=== PATIENT | male | born 1955 | race Caucasian/White ===

== ENCOUNTER → 2018-02-17 14:38 | Outpatient (CLI) | payer MEDICAID, SELFPAY ==
[2018-02-17 15:01] LABS: CREATININE FINGERSTICK 0.8 mg/dL (0.70-1.30); EGFR FINGERSTICK > 60.0000 mL/min (>60)
== END ==
PROVIDERS: Family Provider Family Medicine; PCP Family Medicine; Visit Provider Psychiatry & Neurology Neurology
DX: I67.1 Cerebral aneurysm, nonruptured (principal)
CPT/HCPCS: 70496; Q9967

== ENCOUNTER 2022-12-01 19:36 | Emergency (ER) | payer MEDICAID, SELFPAY ==
[2022-12-01 19:38] VITALS: BP 180/100; PULSE 82; RESP 18; TEMP 35.5; O2SAT 96; BMI 30.8
--- NOTE | 2022-12-01 19:57 | CT_ITS ---
STUDY: CTA CHEST REASON FOR EXAM: Male, 67 years old. CP, SOB RADIATION DOSAGE (If Supplied By Facility): CTDIvol = ( 24.11 ) mGy, DLP = ( 548.44 ) mGycm TECHNIQUE: The examination was performed with the intravenous administration of IV 100mL Isovue-370. Post-processing of the angiographic images was performed, with multiplanar reformation and 3D reconstruction. Individualized dose optimization techniques were used for this CT. COMPARISON: 12/23/2016 CT PET FINDINGS: Normal enhancement of the main pulmonary artery and right and left pulmonary arteries. Normal enhancement of the bilateral peripheral pulmonary arteries. There is no demonstrated pulmonary embolism. Normal thoracic aorta and visualized great vessels. There is no demonstrated aortic dissection. Normal heart and pericardium. There is questionable soft tissue density overlying the aortopulmonary window measuring 3.6 cm not seen on previous imaging. Normal hilar regions. Normal visualized trachea and bronchi. The lungs are well expanded. There is a possible nodule measuring 4 mm overlying the mid right lower lobe is somewhat limited by motion artifact. Normal pleura. Normal chest wall structures. Normal osseous structures. Normal visualized upper abdomen. CT/CTA Chest W/WO Contrast IMPRESSION: No evidence of pulmonary embolism or aortic dissection. No evidence of underlying focal consolidation. Questionable mediastinal soft tissue density measuring 3.6 cm (series 2 image 169/265). Consider follow-up PET/CT imaging to assess for underlying glucose activity. Right lower lobe possible 4 mm nodule, recommend follow-up imaging in 3-4 months given patient''s previous PET CT scans demonstrating previous neoplasm. Recommend continued. Imaging follow-up further assessment and exclude occult underlying findings. Electronically Signed: Elias Cheng DO at 21:21 EDT ,
--- NOTE | 2022-12-01 19:58 | EKG12_ITS ---
Test Reason : CP Blood Pressure : / mmHG Vent. Rate : 080 BPM Atrial Rate : 080 BPM P-R Int : 192 ms QRS Dur : 080 ms QT Int : 370 ms P-R-T Axes : -18 046 -15 degrees QTc Int : 426 ms Normal sinus rhythm Left ventricular hypertrophy with repolarization abnormality ( Sokolow-Rees ) Abnormal ECG Confirmed by MAGDY STEWARD, JOSE ([id number]), editor continuity and script BRYON MA ([id number]) on 12/03/2022 8:49:24 AM Referred By: CARLENE Confirmed By:JOSE CURRAN MD
--- NOTE | 2022-12-01 20:10 | EDS_ITS ---
HPI History of Present Illness Chief Complaint: Chest Pain [facility] Medical History (Updated 12/01/22 @ 23:[address] Leonardo Hartmann, DO) CVA (cerebral vascular accident) Home Medications prednisone 50 mg tablet 50 mg PO DAILY #5 tabs 12/01/22 [Rx Last Taken Unknown] Allergy/AdvReac Type Severity Reaction Status Date / Time celecoxib [From Celebrex] Allergy Anaphylaxis Verified 12/01/22 19:37 Surgical History (Updated 12/01/22 @ 19:41 by Lisa Penn) S/P lobectomy of lung Social History Smoking Status: Former smoker EXAM Physical Exam Const Vital Signs: 12/01/22 19:38 12/01/22 19:41 12/01/22 19:42 Temperature 96 F L Temperature Source Temporal Pulse Rate 82 Respiratory Rate 18 Respiratory Effort Short of Breath Short of Breath Respiratory Pattern Blood Pressure 180/100 H Blood Pressure Mean 126 Pulse Ox 96 Oxygen Delivery Method Nasal Cannula Oxygen Flow Rate (L/min) 3 12/01/22 21:37 Temperature Temperature Source Pulse Rate 77 Respiratory Rate 18 Respiratory Effort Respiratory Pattern Normal Blood Pressure Blood Pressure Mean Pulse Ox Oxygen Delivery Method Oxygen Flow Rate (L/min) MDM MDM MDM Narrative Medical decision making narrative: HISTORY OF PRESENT ILLNESS: 67-year-old male here for chest pain, shortness of breath. States he wears 3 L at baseline. States his history of lung cancer. He states pain started several days ago. Notes increased use of his nebulizer breathing treatment. Denies any cough fever or chills. Denies any sick contacts. Denies any syncope. Notes history of cancer but denies current treatment. The patient denies recent surgery in the last 4 weeks or immobilization in the last 3 days, denies previous diagnosis of DVT or PE, hemoptysis, unilateral leg swelling or malignancy with treatment the last 6 months. No estrogen use noted. He also notes chest pain. Pain is not radiating is not pleuritic. It is not associated with numbness weakness or loss sensation. Is not exertional. REVIEW OF SYSTEMS: Pertinent positives: Chest pain, shortness of breath Pertinent negatives: Syncope, hemoptysis PHYSICAL EXAM: Nursing triage notes reviewed, Vital signs reviewed Constitutional: please see mdm HENT: MMM Eyes: Pupils equal round and reactive to light, Extraocular muscles intact Neck: No stridor, no JVD, full neck ROM Lungs: Clear to auscultation, slight wheezing noted in the left lung mack slightly greater than right. No increased work of breathing, no conversational dyspnea, no accessory muscle use, no nasal flaring. No respiratory distress noted Heart: Regular rate and rhythm, No murmurs, No rubs and No gallops, 2+ distal pulses (radial, femoral, posterior tibial) in all extremities Abdomen: Soft, there is no tenderness, rigidity, rebound or guarding, no obvious peritoneal signs, no palpable pulsatile abdominal masses, no auscultated abdominal bruit : No CVAT Extremities: No edema Neuro: No focal neurological deficits, cranial nerves II through XII intact, 5/5 strength in all extremities. Intact sensation to light touch in all extremities, 2+ reflexes bilateral patella tendons. Normal gait. No ataxia. Skin: No rash or lesions noted MEDICAL DECISION MAKING: Chief Complaint: Chest pain, shortness of External records reviewed: No recent echocardiograms noted in the chart Factors affecting care: Lung cancer on 2 L baseline, CHF, epilepsy, TIA, oxygen dependence, hypertension Social determinants of health: Elderly History obtained from others: The patient's family Consults: None ALL IMAGES HAVE BEEN PERSONALLY REVIEWED AND INTERPRETED BY MYSELF. MDM Narrative: 67-year-old male here for chest pain, shortness of breath. The patient states I considered the following differential diagnosis: PE, anemia, ACS, arrhythmia, CHF, COPD exacerbation, pneumonia Patient was initially hypertensive otherwise hemodynamically stable on 3 L baseline home O2. He has slight wheezing on my exam. I obtained a CTA to rule out PE. CTA shows no evidence of pneumonia or pulmonary embolism also obtained EKG troponin and basic labs including BNP. Initial troponin was indeterminate we will repeat troponin. BNP not elevated. There is no right heart strain initial EKG. There was T wave versions in lead III with no prior EKG for comparison no other ischemic changes. There is no significant anemia noted. No significant electrolyte abnormalities. He was given a DuoNeb breathing treatment. He is awaiting delta troponin. Delta troponin is negative. The patient was re-evaluated he noted mild symptom improvement after DuoNeb breathing treatment. No clear life or limb threatening etiology. No need for admission. Appropriate for dc. Nodule communicated to patient. I suspect the patient suffering from a mild COPD exacerbation. He is encouraged to continue nebulized breathing treatments every 4 hours. He is encouraged to take oral prednisone for anti-inflammatory effect. He has home oxygen and instructed to titrate this as needed to return if symptoms change or worsen specifically develop shortness of breath, chest pain, syncope, fever. Total critical care time today provided was at least 0 minutes. This excludes separately billable procedures. Critical care time if documented is secondary to the patient having high probability of clinically significant/life threatening deterioration in the patient's condition which required my urgent intervention. Shared decision making: I will have a discussion with the patient and or visitors regarding risk/benefits of further testing or admission. They will be made aware of of the risk/benefits inherent in this decision they will be given the opportunity to voice understanding. Lab Data Attestation: I reviewed the patient's lab results. Lab results narrative: EKG shows normal sinus rhythm, normal axis, no murmurs, no CBC without leukocytosis, severe anemia, no thrombocytopenia. BMP without evidence of significant electrolyte abnormalities, no anion gap, no acute kidney injury. Troponin is negative, no evidence of myocardial ischemia, delta troponin is also negative does not rule in high-sensitivity troponin rule out protocol. BNP within normal limits making volume overload, right ventricular stretch less likely Labs: Laboratory Results - last 24 hr 12/01/22 12/01/22 12/01/22 20:00 20:00 20:00 WBC 6.4 RBC 4.84 Hgb 14.6 Hct 44.3 MCV 91.5 MCH 30.2 MCHC 33.0 RDW Std Deviation 45.3 H RDW Coeff of Chu 13.5 Plt Count 275 MPV 8.7 Immature Gran % (Auto) 0.800 Neut % (Auto) 50.5 Lymph % (Auto) 36.2 [place] % (Auto) 8.5 Eos % (Auto) 3.4 Baso % (Auto) 0.6 Absolute Neuts (auto) 3.2 Absolute Lymphs (auto) 2.31 Nucleated RBC % 0 Sodium 137 Potassium 3.9 Chloride 103 Carbon Dioxide 28.0 Anion Gap 6 BUN 11 Creatinine 0.65 L Estim Creat Clear Calc 84.48 Est GFR (MDRD) Af Amer 158 Est GFR (MDRD) Non-Af 130 BUN/Creatinine Ratio 16.9 Glucose 90 Calcium 10.2 H Troponin I High Sens 19 B-Natriuretic Peptide 60.9 12/01/22 22:05 WBC RBC Hgb Hct MCV MCH MCHC RDW Std Deviation RDW Coeff of Chu Plt Count MPV Immature Gran % (Auto) Neut % (Auto) Lymph % (Auto) [place] % (Auto) Eos % (Auto) Baso % (Auto) Absolute Neuts (auto) Absolute Lymphs (auto) Nucleated RBC % Sodium Potassium Chloride Carbon Dioxide Anion Gap BUN Creatinine Estim Creat Clear Calc Est GFR (MDRD) Af Amer Est GFR (MDRD) Non-Af BUN/Creatinine Ratio Glucose Calcium Troponin I High Sens 25 B-Natriuretic Peptide Radiography Diagnostic Testing: Clinical Impression(s) from Imaging Studies Chest CTA 12/01/22 19:57 IMPRESSION: No evidence of pulmonary embolism or aortic dissection. No evidence of underlying focal consolidation. Questionable mediastinal soft tissue density measuring 3.6 cm (series 2 image 169/265). Consider follow-up PET/CT imaging to assess for underlying glucose activity. Right lower lobe possible 4 mm nodule, recommend follow-up imaging in 3-4 months given patient''s previous PET CT scans demonstrating previous neoplasm. Recommend continued. Imaging follow-up further assessment and exclude occult underlying findings. Electronically Signed: Elias Cheng DO at 21:21 EDT , Discharge Plan Triage Chief Complaint: Chest Pain Other Complaint: Shortness of Breath ED Provider: Leonardo Hartmann Dx/Rx/DC Orders Clinical Impression: COPD with exacerbation, Lung nodule Instructions: ED COPD Flare Prescriptions: New prednisone 50 mg tablet 50 mg PO DAILY Qty: 5 0RF Primary Care Provider: Bj Chavez Referrals: Bj Chavez MD [Primary Care Provider] - Activity Restrictions/Additional Instructions: Thank you for trusting us with your care today! Please take Tylenol (2 pills, 650 mg), ibuprofen (2 pills, 400 mg) every 6 hours as needed for pain and fever control. Please return to the emergency department if your symptoms change or worsen. Specifically develop worsening shortness of breath, if you lose consciousness, develop worsening chest pain. Please follow with your primary care physician for further outpatient evaluation and management. Disposition Disposition: Home, Self Care
[2022-12-01 20:16] LABS: Absolute Lymphocyte Count 2.31 X10^3/uL (0.83-4.51); Absolute Neutrophil Count 3.2 X10^3/uL (2.0-7.7); Basophil# 0.04 X10^3/uL; Basophil% 0.6 % (0-1); Eosinophil# 0.22 X10^3/uL; Eosinophils% 3.4 % (0-5); Hematocrit 44.3 % (40-54); Hemoglobin 14.6 g/dL (13.0-16.5); Lymphocyte # 2.31 X10^3/ul (0.83-4.51); Lymphocyte % 36.2 % (19-41); Mean Corpuscular Hgb 30.2 pg (27.0-32.0); Mean Corpuscular Volume 91.5 fL (80-94); Mean Platelet Vol. 8.7 fl (6.2-12.0); Monocyte# 0.54 X10^3/uL; Monocyte% 8.5 % (0-10); NRBC Flagged by Analyzer 0 % (0-5); Neutrophil # 3.22 X10^3/uL (2.7-7.7); Neutrophil % 50.5 % (47-70); Platelet Count 275 K/mm3 (150-450); RBC Distribution Width CV 13.5 % (11.6-14.6); RBC Distribution Width SD 45.3 fl (35.1-43.9); Red Blood Count 4.84 M/mm3 (4.6-6.2); White Blood Count 6.4 K/mm3 (4.4-11.0)
[2022-12-01 20:34] LABS: Anion Gap 6 (5-15); BUN 11 mg/dL (7-18); BUN/Creat Ratio 16.9 RATIO (10-20); Calcium,Total 10.2 mg/dL (8.5-10.1); Chloride 103 mmol/L (98-107); Creatinine, Serum 0.65 mg/dL (0.70-1.30); EST Glomerular Filtration Rate 130 mL/min (>60); Est Glom Filt Rate - Afr Amer 158 mL/min (>60); Estimated Creatinine Clearance 84.48 ml/min; Glucose 90 mg/dL (74-106); Potassium 3.9 mmol/L (3.5-5.1); Sodium Level 137 mmol/L (136-145); Troponin-I HS 19 pg/mL (3.0-78.0)
[2022-12-01 20:52] LABS: BNP,B-Type NATRIURETIC PEPTIDE 60.9 pg/mL (0-100)
[2022-12-01 21:37] VITALS: PULSE 77; RESP 18
[2022-12-01] MEDS: Ipratropium/Albuterol Sulfate 3 ML AMPUL.NEB INHALATION (21:37)
[2022-12-01 22:50] LABS: Troponin-I HS 25 pg/mL (3.0-78.0)
[2022-12-01 23:00] VITALS: BP 192/79; PULSE 76; O2SAT 99
[2022-12-01 23:02] VITALS: PULSE 74; O2SAT 99
== END 2022-12-02 00:25 | disposition home or self-care (01) ==
PROVIDERS: Emergency Provider Emergency Medicine; PCP Internal Medicine Infectious Disease; Visit Provider Emergency Medicine
DX: J44.1 Chronic obstructive pulmonary disease with (acute) exacerbation (principal); I11.0 Hypertensive heart disease with heart failure; I50.9 Heart failure, unspecified; Z87.891 Personal history of nicotine dependence; Z99.81 Dependence on supplemental oxygen; Z85.118 Personal history of other malignant neoplasm of bronchus and lung; Z86.73 Personal history of transient ischemic attack (TIA), and cerebral infarction without residual deficits
CPT/HCPCS: 71275; 80048; 83880; 84484; 85025; 93005; 94640; 99285; J7030; Q9967; A4216